=== PATIENT | male | born 2005 | race Caucasian/White ===

== ENCOUNTER 2024-04-29 22:20 | Emergency (ER) | payer BC ==
[2024-04-29 23:49] LABS: #Basophils 0.04 10x3/uL (0.0-0.2); %Basophils 0.5 % (0.0-1.0); %Eosinophils 1.1 % (0.0-10.0); %Monocytes 7.1 % (0.0-4.0); %Neutrophils 66.9 % (31.0-61.0); Hematocrit 41.3 % (42.0-52.0); Hemoglobin 14.1 g/dL (14.0-18.0); Mean Corpuscular HGB CONC 34.1 g/dL (32.0-36.0); Mean Corpuscular Hemoglobin 30.3 pg (25.0-35.0); Mean Corpuscular Volume 88.6 fL (78.0-98.0); Mean Platelet Volume 10.8 fL (7.4-10.4); Platelet Count 191 10x3/uL (130-400); RBC Distribution Width 12.2 % (11.5-14.5); Red Blood Cell (RBC) Count 4.66 mill/uL (4.00-5.20)
[2024-04-30 00:11] LABS: ALT (SGPT) 17 U/L (8-55); AST (SGOT) 17 U/L (5-34); Albumin 4.6 g/dL (3.5-5.0); Alkaline Phosphatase 50 U/L (50-130); Anion Gap 15 mmol/L (10-20); BUN (Urea Nitrogen) 12 mg/dL (8.9-20.6); Bilirubin, Total 0.5 mg/dL (0.2-1.2); Calc. Creatinine Clearance 0 mL/min (70-130); Calcium 9.8 mg/dL (7.8-10.44); Carbon Dioxide 23 mmol/L (22-29); Chloride 104 mmol/L (98-107); Estimated GFR 100; Glucose 100 mg/dL (70-105); Potassium 4.3 mmol/L (3.5-5.1); Protein, Total 7.6 g/dL (6.0-8.3); Sodium 138 mmol/L (136-145)
== END 2024-04-30 04:25 | disposition home or self-care (01) ==
LOC: ERS 22:20
DX: R55 Syncope and collapse (principal); S43.401A Unspecified sprain of right shoulder joint, initial encounter; S00.211A Abrasion of right eyelid and periocular area, initial encounter; R29.700 NIHSS score 0; X58.XXXA Exposure to other specified factors, initial encounter; Y92.009 Unspecified place in unspecified non-institutional (private) residence as the place of occurrence of the external cause
CPT/HCPCS: 36415; 70450; 80053; 84484; 85025; 93005

== ENCOUNTER 2025-05-03 12:58 | Outpatient (CLI) | payer BC ==
[~2025-05-03 12:58] MED LIST: Iopamidol-370 76% 500 ML MDV (1 ML CHARGE) ONE
== END 2025-05-03 12:59 | disposition home or self-care (01) ==
LOC: CT 12:58
PROVIDERS: ATTEND Otolaryngology Plastic Surgery within the Head & Neck
DX: R22.1 Localized swelling, mass and lump, neck (principal)
CPT/HCPCS: 70491; Q9967